=== PATIENT | female | born 1995 | race Two or more races ===

== ENCOUNTER 2022-02-01 07:31 | Outpatient (CLI) | payer OTHER | END 2022-02-01 07:40 | disposition home or self-care (01) | LOC: MRI 07:31 | PROVIDERS: ATTEND Internal Medicine Gastroenterology | DX: K80.20 Calculus of gallbladder without cholecystitis without obstruction (principal); R74.9 Abnormal serum enzyme level, unspecified | CPT/HCPCS: 74181 ==

== ENCOUNTER → 2022-02-16 | Outpatient (CLI) | payer OTHER | END | disposition home or self-care (01) | LOC: SONOGRAMA 10:28 | PROVIDERS: ATTEND Internal Medicine Gastroenterology | DX: R74.9 Abnormal serum enzyme level, unspecified (principal); K80.50 Calculus of bile duct without cholangitis or cholecystitis without obstruction; R10.13 Epigastric pain ==

== ENCOUNTER 2022-02-26 12:20 | Outpatient (CLI) | payer OTHER | END 2022-02-26 12:21 | disposition home or self-care (01) | LOC: LAB 12:20 | DX: Z11.52 Encounter for screening for COVID-19 (principal); Z20.822 Contact with and (suspected) exposure to COVID-19; Z20.828 Contact with and (suspected) exposure to other viral communicable diseases ==

== ENCOUNTER 2022-03-14 04:52 | Emergency (ER) | payer OTHER ==
[~2022-03-14] VITALS: Ht 157.5 cm; Wt 54.9 kg
[2022-03-14] MEDS ORDERED: LEVSIN/SL0.125 MG PO (11:27)
[2022-03-14] MEDS ORDERED: CELEBREX100 MG PO (11:27)
== END 2022-03-14 12:58 ==
LOC: ER 04:52
DX: K80.50 Calculus of bile duct without cholangitis or cholecystitis without obstruction (principal); Z20.822 Contact with and (suspected) exposure to COVID-19

== ENCOUNTER 2022-03-26 06:00 | Day surgery (SDC) | payer OTHER ==
[~2022-03-26 06:00] MED LIST: CELEBREX100 MG PO; LEVSIN/SL0.125 MG PO; PEPCID AC20 MG PO; SPRINTEC 28 DA1 EACH PO
[2022-03-26] MEDS ORDERED: PERCOCET 5-3251 EACH PO ×2 (08:58→16:02)
[2022-03-26] MEDS ORDERED: DICY20TA PO (09:00)
[2022-03-26] MEDS ORDERED: PEPCID20 MG PO (09:00)
[2022-03-26] MEDS ORDERED: ZOFRAN8 MG PO (09:01)
[2022-03-26] MEDS ORDERED: DICLOFENAC SODI75 MG PO (09:01)
[2022-03-26] MEDS ORDERED: PEPCID AC20 MG PO ×2 (16:02→16:04)
== END 2022-03-26 12:55 | disposition home or self-care (01) ==
LOC: CIR.AMB 06:00
PROVIDERS: ATTEND Surgery
DX: K80.10 Calculus of gallbladder with chronic cholecystitis without obstruction (principal); Z20.822 Contact with and (suspected) exposure to COVID-19